=== PATIENT | male | born 1955 | race Caucasian/White ===

== ENCOUNTER 2019-11-17 16:11 | Inpatient (IN) | payer OTHER ==
[~2019-11-17] VITALS: Ht 188 cm; Wt 97.5 kg
[2019-11-17 16:49] LABS: BASOPHILS % (AUTO) 0.5 % (0.0-5.0); EOSINOPHILS % (AUTO) 0.3 % (0.0-8.0); HEMATOCRIT 39.4 % (42-54); LYMPHOCYTES % (AUTO) 6.8 % (21.0-51.0); MEAN CORPUSCULAR HEMOGLOBIN 31.6 pg (27.0-33.0); MEAN CORPUSCULAR HGB CONC 34.8 g/dL (32.0-36.0); MEAN CORPUSCULAR VOLUME 90.8 fL (79-99); MONOCYTES % (AUTO) 9.3 % (3.0-13.0); NEUTROPHILS % (AUTO) 82.8 % (40.0-77.0); PLATELET COUNT (AUTO) 150 K/uL (130-400); RED BLOOD CELL COUNT(AUTO) 4.34 MIL/uL (4.50-6.20); RED CELL DISTRIBUTION WIDTH 13.4 % (11.0-15.5); WHITE BLOOD COUNT (AUTO) 12.2 K/uL (4.8-10.8)
[2019-11-17 16:59] LABS: CARBON DIOXIDE 27 mmol/L (21-32); CHLORIDE 104 mmol/L (101-111); CREATININE 1.7 mg/dL (0.5-1.5); GLOMERULAR FILTR. RATE CALC 43 mL/min (>60); GLUCOSE,RANDOM 76 mg/dL (70-105); POTASSIUM 4.8 mmol/L (3.5-5.1); SODIUM SERUM 138 mmol/L (136-145); UREA NITROGEN, BLOOD 17 mg/dL (7-18)
[2019-11-17 17:05] LABS: B-TYPE NATRIURETIC PEPTIDE 27 pg/mL (0-100)
[2019-11-17 17:10] LABS: ALANINE AMINOTRANSFERASE 20 U/L (12-78); ALBUMIN 3.5 g/dL (3.5-5.0); ASPARTATE AMINOTRANSFERASE 24 U/L (10-37); BILIRUBIN,TOTAL 0.7 mg/dL (0.2-1.0); CREATINE KINASE, TOTAL 62 U/L (21-232); MYOGLOBIN 84 ng/mL (10-92); TOTAL PROTEIN, SERUM 6.5 g/dL (6.0-8.3); TROPONIN I < 0.04 ng/mL (0.00-0.06)
[2019-11-17 17:12] LABS: INR 0.99 (0.85-1.15); PARTIAL THROMBOPLASTIN TIME 21.2 SEC (26.3-35.5); PROTHROMBIN TIME 10.7 SEC (9.6-11.6)
[2019-11-17 17:21] LABS: APPEARANCE,URINE Clear (CLEAR); BILIRUBIN,URINE Negative (NEGATIVE); COLOR,URINE Yellow (YELLOW); GLUCOSE, URINE (UA) Negative (NEGATIVE); KETONES,URINE Trace mg/dL (NEGATIVE); LEUKOCYTE ESTERASE ,URINE Large (NEGATIVE); NITRATE,URINE Positive (NEGATIVE); OCCULT BLOOD,URINE Negative (NEGATIVE); PH,URINE 5.5 (5.0-8.0); PROTEIN,URINE Negative (NEGATIVE)
[2019-11-17 17:37] LABS: BACTERIA,URINE Many /HPF (None Seen); MUCUS,URINE Few LPF (None Seen); RBC,URINE 0-1 /HPF (0-1); SQUAMOUS EPITHELIAL CELL,UR 0-2 /HPF (0-2)
[2019-11-17] MEDS ORDERED: CEFTRIAXONE SODIUM 2 GM VIAL ONE (17:51)
[2019-11-17] MEDS ORDERED: SODIUM CHLORIDE 0.9% 50 ML IV ONE (17:52)
[2019-11-17] MEDS ORDERED: SODIUM CHLORIDE 0.9% 1000ML 1,000 ML IV SCH (19:00)
[2019-11-17] MEDS ORDERED: NITROGLYCERIN 0.4 MG SL TAB SL PRN (19:00)
[2019-11-17] MEDS ORDERED: ONDANSETRON HCL 4 MG/2 ML VIAL IV PRN (19:00)
[2019-11-17] MEDS ORDERED: ACETAMINOPHEN 325 MG TAB PO PRN ×2 (19:00)
[2019-11-17] MEDS ORDERED: SODIUM CHLORIDE 0.9% 1000ML 1,000 ML IV ONE (19:22)
[2019-11-17] MEDS ORDERED: CEFTRIAXONE SODIUM 1 GM IVP SCH (20:00)
[2019-11-17] MEDS: SODIUM CHLORIDE 0.9% 1000ML 1,000 ML IV SCH (20:03)
[2019-11-17] MEDS ORDERED: ATORVASTATIN CALCIUM 20 MG TABLET ONE (20:10)
[2019-11-17] MEDS ORDERED: METOPROLOL TARTRATE 25 MG TAB ONE (20:10)
[2019-11-17] MEDS: METOPROLOL TARTRATE 25 MG TAB PO SCH (20:27)
[2019-11-17 20:30] VITALS: BP 115/71
[2019-11-17] MEDS ORDERED: ATORVASTATIN CALCIUM 20 MG TABLET PO SCH (21:00)
[2019-11-18 00:02] VITALS: BP 105/58
[2019-11-18] MEDS: SODIUM CHLORIDE 0.9% 1000ML 1,000 ML IV SCH (04:08)
[2019-11-18 04:14] VITALS: BP 99/59
[2019-11-18 06:02] LABS: HEMATOCRIT 35.9 % (42-54); MEAN CORPUSCULAR HEMOGLOBIN 31.4 pg (27.0-33.0); MEAN CORPUSCULAR VOLUME 92.3 fL (79-99); RED BLOOD CELL COUNT(AUTO) 3.89 MIL/uL (4.50-6.20); RED CELL DISTRIBUTION WIDTH 13.7 % (11.0-15.5); WHITE BLOOD COUNT (AUTO) 12.1 K/uL (4.8-10.8)
[2019-11-18 06:21] LABS: CREATININE 1.2 mg/dL (0.5-1.5)
--- NOTE | 2019-11-18 08:00 | NUR ---
PT AAI X 3 REVIEW PLAN OF CARE. . DENIES ANY CHEST PAIN. OR SOB. CALL LIGHT IN REACH.
[2019-11-18 08:51] VITALS: BP 103/63
[2019-11-18] MEDS ORDERED: ASPIRIN 81MG TAB.CHEW PO SCH (09:00)
[2019-11-18] MEDS: METOPROLOL TARTRATE 25 MG TAB PO SCH (09:36)
[2019-11-18] MEDS ORDERED: CEFTRIAXONE SODIUM 1 GM ONE (10:30)
[2019-11-18 11:53] VITALS: BP 117/69
--- NOTE | 2019-11-18 12:20 | NUR ---
PT WISHES TRANSFER TO [facility] IN [facility] AND WANTS TO SPEAK WITH THE
--- NOTE | 2019-11-18 12:25 | NUR ---
DR. DANAE ALCALA HERE ,AND UPDATE OF PT WISHES TO BE TRANSFER . AND WANTS TO SPEAK WITH HIM DR. DANAE ALCALA SPOKE WITH PT . AND HOUSE SUPERIVOR EL BALBUENA. REGARDING TRANSFER PLAN . .
--- NOTE | 2019-11-18 14:00 | NUR ---
cm note pt resides athome with spouse. no dme no services, dc plan [place]. no dc needs. Addendum: 11/18/19 at 1551 by GAYE SOLORIO CM Amended: Links added.
--- NOTE | 2019-11-18 15:00 | NUR ---
REPORT CALLED TO [facility] SPOKE WITH STAFF NURSE CANDIDO MARCUS RN. REVIEW DISCHARGE ORDERS TO FOLLOW.
--- NOTE | 2019-11-18 17:00 | NUR ---
DISCHARGE , TO [facility]. PER PT WISHES . AND ORDERS TO FOLLOW. PT WAS TRANSFER WITH HIS [facility] PIV SL VOICED NO C/O OF CHEST PAIN . TELE MONITOR OFF .
[2019-11-18] MEDS ORDERED: CEFTRIAXONE SODIUM 1 GM IVP SCH (20:00)
== END 2019-11-18 17:00 | disposition short-term general hospital (02) | DRG 872 ==
LOC: EDH 16:11 → OBSVTOIN 18:57 → EDHIP 18:57 → 4DH 20:30
PROVIDERS: ADMIT Internal Medicine; ATTEND Internal Medicine
DX: A41.9 Sepsis, unspecified organism (principal); N39.0 Urinary tract infection, site not specified; E87.2 Acidosis; N17.9 Acute kidney failure, unspecified; I25.10 Atherosclerotic heart disease of native coronary artery without angina pectoris; N41.1 Chronic prostatitis; I25.2 Old myocardial infarction; Z95.5 Presence of coronary angioplasty implant and graft; Z98.84 Bariatric surgery status; Z82.49 Family history of ischemic heart disease and other diseases of the circulatory system; Z03.818 Encounter for observation for suspected exposure to other biological agents ruled out
CPT/HCPCS: 36415; 71045; 80048; 80053; 80061; 81001; 82550; 82728; 83605; 83874; 83880; 84145; 84484; 85025; 85027; 85378; 85610; 85730; 86900; 86901; 87040; 87077; 87088; 87186; 87426; 87804; 93005; 99291; G0378; J0696; J7030; U0003